=== PATIENT | male | born 1995 | race Caucasian/White ===

== ENCOUNTER 2021-07-20 13:47 | Emergency (ER) | payer OTHER ==
[~2021-07-20] VITALS: Ht 188 cm; Wt 86.2 kg
[2021-07-20] MEDS ORDERED: AMOCLA875 PO (14:00)
== END 2021-07-20 14:03 | disposition home or self-care (01) ==
LOC: ER 13:47
DX: L01.00 Impetigo, unspecified (principal)
CPT/HCPCS: 99282